=== PATIENT | male | born 1945 | race Caucasian/White ===

== ENCOUNTER → 2017-09-17 | Outpatient (CLI) | payer MEDICARE, OTHER | END | disposition home or self-care (01) | LOC: KCIC MRI 13:38 | DX: M50.322 Other cervical disc degeneration at C5-C6 level (principal); M47.892 Other spondylosis, cervical region; M48.02 Spinal stenosis, cervical region; M25.78 Osteophyte, vertebrae; I10 Essential (primary) hypertension; E78.5 Hyperlipidemia, unspecified; E03.9 Hypothyroidism, unspecified | CPT/HCPCS: 72141 ==

== ENCOUNTER → 2017-10-15 | Outpatient (CLI) | payer MEDICARE, OTHER ==
[2013-06-10 09:45] VITALS: BP 109/61
[~2017-10-15] MED LIST: ALEN70TA3 PO; BUPIVACAINE MPF 0.25% 10 ML VIAL. ONE; CELE200C PO; ESOM40CA PO; EZET1TAB35 PO; FLUT16SP2 NS; HYDR1TAB12 PO; IOHEXOL 180 MG/ML 10 ML VIAL. ONE; LEVO112T4 PO; LIDOCAINE 2% PF 2ML VIAL. ONE; LOSA50TA2 PO; OSCAL; SIMV40TA3 PO; TADA20TA PO; TEST1.25 TD; methylPREDNISolone ACETATE 40 MG/ML VIAL. ONE; methylPREDNISolone ACETATE 80 MG/ML VIAL. ONE
--- NOTE | 2017-10-15 21:58 | PAIN ---
DATE OF SERVICE: 10/15/2017 INITIAL CONSULTATION FOR PAIN CLINIC CHIEF COMPLAINT: Neck and bilateral shoulder pain, right greater than left. HISTORY OF PRESENT ILLNESS: This is a 72-year-old male who presents with history of pain for about 4 months without any specific injury or action he is aware of and pain in the base of the neck, upper mid neck into the shoulders radiating to the right greater than left into the hands and the thumb and index finger bilaterally, somewhat worse on the left with some numbness and tingling. The patient reports no loss of motor function with significant pain in the base of the neck, shoulders, again into the hands bilaterally, worse at night. The patient reports it is constant, becoming more radiating, more aching and dull with numbness in the hands is noted. The patient did have an MRI scan of the cervical spine showing mild right lateral recess stenosis at C5-C6 with mild degenerative disk disease and spondylosis at C5-C6 with fairly severe narrowing of the right C5-C6 neural foramen due to facet and uncovertebral degenerative change, mild narrowing on the left at C3-C4 and C4-C5 as well. The patient reports he has had physical therapy, which seemed to help but only by about 20%-30% and only lasts for about 2 days after the procedure. The patient has had dry needling performed in the neck as well, which helps again for about a day or so. He is taking ibuprofen, which is helpful also but only temporarily. The patient reports no other therapies or other treatments at this time. The patient is on disability rate from 0-10, 10 being the worst. The patient rates his disability for family home responsibilities at 9, also recreation at 9, social activity at 5, sexual behavior 5, self-care 6 and life support activities 4. The patient reports no loss of motor function once again but significant fatigability, especially in the right shoulder and arm with repetitive motion such as reaching over his head even getting dressed, putting his arms to shirt can be somewhat difficult but again worse at night, which is disturbing his sleep with some numbness in the hands. The patient reports it does awaken about 3-4 times a night, does not affect his bowel or bladder control but does affect his ability to walk and at times, he feels like he is off balance when his shoulders are hurting at the most. PAST MEDICAL HISTORY: Significant for arthritis; hypertension and cigarette smoking, quit in 1984. PAST SURGICAL HISTORY: Previous surgeries include eye surgery in 2018; tonsillectomy in 1958 and umbilical hernia x 4 in the past, becoming a ventral hernia repair. CURRENT MEDICATIONS: Include testosterone gel, Vicodin, Cozaar, levothyroxine, Flonase, Celebrex, Cialis and simvastatin. ALLERGIES: The patient has no known drug allergies. FAMILY HISTORY: Significant for thyroid disorders. SOCIAL HISTORY: The patient quit smoking many years ago, has one alcoholic drink about every 2 months or so on average. The patient is not using any illegal, illicit or recreational drugs. He is and lives with his spouse and is currently retired and lives locally in [place], [place]. REVIEW OF SYSTEMS: The patient's review of systems is positive for those items mentioned in history of present illness. All systems reviewed and otherwise negative. It is complete, full and well documented on the patient's chart. PHYSICAL EXAMINATION: VITAL SIGNS: Blood pressure 150/77, pulse is 60, respirations 18, temperature 98.2 degrees Fahrenheit, height is 5 feet 10 inches and weight is 218 pounds. GENERAL: The patient is awake, alert, oriented, appropriate and very pleasant demeanor. HEENT: Head shows normocephalic and atraumatic. Extraocular movements are intact and symmetrical. Oral cavity: Mucous membranes moist and pink. Dentition is intact. NECK: Shows anterior throat supple without palpable lymphadenopathy noted. Swallow reflex symmetrical. CHEST: Shows normal on inspection. Breath sounds clear to auscultation bilaterally. HEART: Shows S1 and S2 clear. No murmurs auscultated. ABDOMEN: Soft, nontender and nondistended. No palpable organomegaly is noted. No rebound or guarding demonstrated. BACK: The patient's back shows spine grossly in the midline, normal-appearing cervical lordotic curvature, thoracic kyphotic curvature and lumbar lordotic curvature. Cervical paraspinous muscle shows symmetrical on inspection, on palpation shows some moderate tenderness but only diffusely with palpation in the superior aspect, middle and lower distributions more tender, slightly more on the right than left but symmetrical without evidence of atrophy or hypertrophy, no trigger points, no significant atrophy or hypertrophy in the trapezius musculature as well, which is moderately tender again without radiation bilaterally. The patient has good rotational motion of the cervical spine with some minor pain with extension, not with forward flexion but also good rotational motion past 45 degrees right and left, closer to 90 degrees, good rotation without significant pain reported. EXTREMITIES: Upper extremities show deep tendon reflexes at 2+ in the biceps, triceps tendons. Motor exam is strong with 5/5 pole shaver strength, bicep and tricep flexion and equal bilaterally. Peripheral pulses are 2+ radial distribution. No peripheral edema is noted. Shoulder shrug is strong and intact without loss of strength on resistance without significant pain reported. This is true with abduction of the shoulder to 90 degrees as well. IMPRESSION: 1. This is a 72-year-old male with approximate 4-month history of increasing pain, base of the neck and shoulders, somewhat worse on the right than the left with some numbness in the hands with the radicular pattern. 2. MRI scan of the cervical spine as noted. 3. Hypertension. 4. Arthritis. PLAN: Options were discussed with the patient including conservative medical management, physical therapy, interventional techniques. He would like to pursue interventional techniques. We discussed a cervical epidural steroid injection using description as well as anatomical models to describe the procedure. Risks were then discussed including, but not limited to bleeding, infection, possibility of epidural hematoma and subsequent neurological compromise, dural puncture, headaches, spinal cord and/or nerve damage, side effects of steroid medication and poor results regarding pain control. The patient understands and wished to proceed. The patient will return to clinic in approximately 2 weeks for followup, was counseled as to return appointment, activity level and side effects to be aware of. DIAGNOSIS: Cervical radiculopathy with cervical degenerative disk disease. PROCEDURE: Cervical epidural steroid injection, translaminar approach, C6-C7 level using C-arm fluoroscopic guidance under sterile prep and drape using local anesthetic. MEDICATION INJECTED: A total of 120 mg Depo-Medrol plus 5 mL of preservative-free normal saline and 2 mL of Isovue for contrast. CONDITION AT DISCHARGE: Stable. The patient tolerated the procedure well and had no complications. JUDE WHITLOCK MD DR: LEONIE/keyonna JOB#: [id number] / [id number] SHIVANI Duarte GALEN MD
== END | disposition home or self-care (01) ==
LOC: PNCL 09:50
PROVIDERS: ATTEND Anesthesiology
DX: M50.123 Cervical disc disorder at C6-C7 level with radiculopathy (principal); I10 Essential (primary) hypertension; M19.90 Unspecified osteoarthritis, unspecified site; Z87.891 Personal history of nicotine dependence; Z98.890 Other specified postprocedural states; Z79.899 Other long term (current) drug therapy; Z83.49 Family history of other endocrine, nutritional and metabolic diseases; Z72.89 Other problems related to lifestyle
CPT/HCPCS: 62321; J1030; J1040; J2001; J3490; Q9965

== ENCOUNTER → 2018-01-12 | Outpatient (CLI) | payer MEDICARE, OTHER ==
[2013-06-10 09:45] VITALS: BP 109/61
[~2018-01-12] MED LIST changes: -BUPIVACAINE MPF 0.25% 10 ML VIAL. ONE; +FINA5TAB4 PO; +GLUC100018 PO; -LIDOCAINE 2% PF 2ML VIAL. ONE
--- NOTE | 2018-01-13 00:24 | PAIN ---
DATE OF SERVICE: 01/12/2018 PROGRESS NOTE FOR PAIN CLINIC DIAGNOSIS: Cervical radiculopathy with cervical degenerative disk disease. HISTORY OF PRESENT ILLNESS: The patient is a 73-year-old male who returns for followup status post cervical epidural steroid injection x 2, most recently on 10/27/2017. The patient did very well with this with about a 75% improvement, now down to about a 50% improvement and mostly pain in the base of the neck and left shoulder and left upper extremity. The patient reports it is an 8 on a scale of 10 at its worst, 4 on average, 1 at its least and is a 4 today, becoming more difficult with sleeping, but about the past 6 weeks, it has gradually returned. No specific injury or action he is aware of. He did fall on some ice just about 2 days ago, but this has not exacerbated the pain in his shoulder much. The patient reports he does not sleep well, but not because of the pain. The patient reports the pain is aching and dull, shooting, sharp, sometimes more constant, more severe, worse with activity of the left upper extremity as well. The patient reports no new motor or sensory deficits or other complaints. PHYSICAL EXAMINATION: VITAL SIGNS: The patient's blood pressure is 126/69, pulse 66, respirations are 18, temperature 98.3 degrees Fahrenheit. Height is 5 feet 10 inches, weight is 218 pounds. GENERAL: The patient is awake, alert, oriented, appropriate, very pleasant demeanor. HEENT: Head shows normocephalic, atraumatic. Extraocular movements are intact and symmetrical. Oral cavity, mucous membranes moist and pink. Dentition is intact. NECK: Shows anterior throat supple without palpable lymphadenopathy noted. Swallow reflex symmetrical. CHEST: Shows normal with inspection. Breath sounds clear to auscultation bilaterally. HEART: Shows S1, S2 clear. No murmurs auscultated. ABDOMEN: Obese, soft, nontender, nondistended. No palpable organomegaly is noted. No rebound or guarding demonstrated. BACK: Shows spine grossly in the midline, normal appearing cervical lordotic curvature, thoracic kyphotic curvature and lumbar lordotic curvature. Cervical paraspinous muscle shows symmetrical on inspection, with palpation shows some mild tenderness only diffusely in the inferior aspect of the left greater than right paraspinous musculature and also the superior medial trapezius on the left is moderately tender compared to the right. The patient has full rotational motion of cervical spine both laterally greater than 45 degrees closer to 90 degrees right and left as well as full extension and full forward flexion without significant difficulty. EXTREMITIES: Upper extremities show deep tendon reflexes 2+ in the biceps, triceps tendons. Motor exam is strong with 5/5 hand welt butter strength, bicep and tricep flexion equal. Peripheral pulses are 2+ radial distribution. No peripheral edema is noted bilaterally. Options were discussed with the patient. The patient's old chart was reviewed as his current medication regimen updated. Current review of systems updated today as well. We will proceed with third in the series of cervical epidural steroid injection today with fluoroscopic guidance. Risks were again discussed including, but not limited to, bleeding, infection, possibility of epidural hematoma, subsequent neurological compromise, dural puncture headaches, spinal cord and/or nerve damage, side effects of steroid medication and poor results regarding pain control. The patient understands and wished to proceed. The patient to return to clinic in approximately 2 weeks for followup, was counseled as to his return appointment, activity level and side effects to be aware of. DIAGNOSIS: Cervical radiculopathy with cervical degenerative disk disease. PROCEDURE: Cervical epidural steroid injection, translaminar approach C6-C7 level using C-arm fluoroscopic guidance under sterile prep and drape using local anesthetic. MEDICATION INJECTED: A total of 120 mg of Depo-Medrol plus 5 mL of preservative-free normal saline and 2 mL of Isovue for contrast. CONDITION AT DISCHARGE: Stable. The patient tolerated the procedure well, had no complications. JUDE WHITLOCK MD DR: LEONIE/keyonna JOB#: [id number] / [id number]
== END | disposition home or self-care (01) ==
LOC: PNCL 10:48
PROVIDERS: ATTEND Anesthesiology
DX: M50.123 Cervical disc disorder at C6-C7 level with radiculopathy (principal); E78.00 Pure hypercholesterolemia, unspecified; I10 Essential (primary) hypertension; K21.9 Gastro-esophageal reflux disease without esophagitis; E03.9 Hypothyroidism, unspecified; Z85.828 Personal history of other malignant neoplasm of skin; Z79.899 Other long term (current) drug therapy; Z98.890 Other specified postprocedural states
CPT/HCPCS: 62321; J1030; J1040; Q9965

== ENCOUNTER → 2018-03-18 | Outpatient (CLI) | payer MEDICARE, OTHER ==
[2013-06-10 09:45] VITALS: BP 109/61
[~2018-03-18] MED LIST changes: -IOHEXOL 180 MG/ML 10 ML VIAL. ONE; +LOSA-73 PO; -LOSA50TA2 PO; -methylPREDNISolone ACETATE 40 MG/ML VIAL. ONE; -methylPREDNISolone ACETATE 80 MG/ML VIAL. ONE
--- NOTE | 2018-03-18 09:58 | KCIC ---
EXAMINATION: Magnetic resonance imaging (MRI) of the lumbar spine without contrast 03/18/2018 9:30 AM HISTORY: Lumbar radicular pain, sciatica on the right side TECHNIQUE: Multiplanar multi-weighted MRI of the lumbar spine was performed without intravenous contrast using the standard lumbar spine protocol. Contrast information: None administered. COMPARISON: MRI lumbar spine March 10, 2012 FINDINGS: There is minimal retrolisthesis of L4 on L5, not significantly changed since prior examination. Vertebral body heights are maintained. Marrow signal intensity is normal in all sequences. Is mild disc height loss at L3-L4 and L4-L5 with mild anterior marginal osteophytosis. Disc desiccation is noted at all levels of lumbar spine, sparing L1-L2. Annular fissure is identified at L5-S1. Conus medullaris terminates at L1. Distal spinal cord signal intensity is normal in all sequences. Abdominal aorta is normal in caliber. Simple appearing renal cortical cyst is identified along the inferior pole left kidney. Renal collecting systems are not visualized. Renal cortical cyst measures 9 mm. Versus portions of the sacrum appear intact. L1-L2: There is mild disc bulge. There is mild facet arthropathy. No neuroforaminal or spinal canal stenosis. L2-L3: There is a mild disc bulge with right foraminal disc protrusion. There is no significant facet arthropathy. Right foraminal disc protrusion appears progressed since the prior examination. No significant neuroforaminal or spinal canal stenosis. L3-L4: There is a moderate circumferential disc bulge with right far lateral annular fissure. There is mild facet arthropathy. Mild left neuroforaminal stenosis. No spinal canal stenosis. Findings are not significantly changed since prior examination. L4-L5: There is a mild disc bulge with right central disc protrusion extending into the right foraminal zone. There is moderate facet arthropathy with ligamentum flavum infolding. There is mild to moderate right and mild left neuroforaminal stenosis. Mild spinal canal stenosis. There is narrowing of the right lateral recess. Findings are stable from prior examination. L5-S1: There is a moderate disc bulge with central disc protrusion. Disc bulges asymmetric to the right. There is moderate facet arthropathy. There is mild bilateral neuroforaminal stenosis, right greater than left. No significant spinal canal stenosis. IMPRESSION: 1. Mild degenerative changes of the lumbar spine with progression of right foraminal disc protrusion at L2-L3 without significant neuroforaminal or spinal canal stenosis. Electronically signed by: Kelin Ruiz MD (03/18/2018 9:54 AM) [facility]
== END | disposition home or self-care (01) ==
LOC: KCIC MRI 09:07
PROVIDERS: ATTEND Physician Assistant Medical
DX: M51.16 Intervertebral disc disorders with radiculopathy, lumbar region (principal); M51.27 Other intervertebral disc displacement, lumbosacral region; M48.061 Spinal stenosis, lumbar region without neurogenic claudication
CPT/HCPCS: 72148

== ENCOUNTER → 2018-04-01 | Outpatient (CLI) | payer MEDICARE, OTHER ==
[2013-06-10 09:45] VITALS: BP 109/61
[~2018-04-01] MED LIST changes: -HYDR1TAB12 PO; +HYDR1TAB13 PO; +IOHEXOL 180 MG/ML 10 ML VIAL. ONE; +TADA5TAB PO; +methylPREDNISolone ACETATE 40 MG/ML VIAL. ONE; +methylPREDNISolone ACETATE 80 MG/ML VIAL. ONE
--- NOTE | 2018-04-01 14:53 | PAIN ---
DATE OF SERVICE: 04/01/2018 PROGRESS NOTE FOR PAIN CLINIC DIAGNOSES: 1. Cervical radiculopathy with cervical degenerative disk disease. 2. Lumbar radiculopathy with lumbar degenerative disk disease and lumbar spinal stenosis. HISTORY OF PRESENT ILLNESS: The patient is a 73-year-old male who returns for followup status post cervical epidural steroid injection x 3, last seen on 01/12. The patient did very well with about 60% improvement overall. The patient reports his main complaint now is his back and the right lower extremity though. The patient has had a new MRI scan of the lumbar spine showing L4-L5 and L5-S1 areas of significant degenerative changes with moderate disk bulge and central disk protrusion at L4-L5 and L5-S1 with asymmetric bulge to the right at L5-S1 and [id number] right and mild left foraminal stenosis at L4-L5. The patient reports it is worse with walking, standing and changing positions, better with sitting or lying down. Generally, it does not awaken him from sleep at night. The patient reports it is aching and tight, shooting into the right posterior gluteus, posterior thigh, posterior calf and lateral calf. The patient reports it is a 6 on a scale of 10 at its worst, 6 on average, 4 at its least and is a 6 today. The patient reports no loss of motor function, no new bowel or bladder incontinence or other complaints. PHYSICAL EXAMINATION: VITAL SIGNS: The patient's blood pressure is 112/66, pulse 64, respirations 18, temperature 97.7 degrees Fahrenheit, weight is 216 pounds. GENERAL: The patient is awake, alert, oriented, appropriate, very pleasant demeanor. HEENT: Head shows normocephalic, atraumatic. Extraocular movements are intact and symmetrical. Oral cavity: Mucous membranes are moist and pink. Dentition is intact. NECK: Shows anterior throat supple without palpable lymphadenopathy noted. Swallow reflex is symmetrical. CHEST: Shows normal on inspection. Breath sounds are clear to auscultation bilaterally. HEART: Shows S1 and S2 clear. No murmurs auscultated. ABDOMEN: Soft, nontender, nondistended. No palpable organomegaly is noted. No rebound or guarding demonstrated. BACK: Shows spine grossly in the midline. Cervical lordotic curvature is intact as is thoracic kyphotic curvature and lumbar lordotic curvature. Lumbar paraspinous muscle shows symmetrical on inspection, on palpation shows some moderate tenderness diffusely bilaterally, but only in the low lumbar distribution, more on the right than the left. The patient has good rotational motion of lumbar spine, both laterally greater than 10 degrees right and left as well as extension greater than 10 degrees, forward flexion 45 degrees without difficulty. EXTREMITIES: Lower extremities show deep tendon reflexes at 1+ in the patellar and tendo calcaneus tendons are equal. Motor exam is strong with 5/5 dorsiflexion, extension, quadriceps and hamstring flexion and symmetrical. Peripheral pulses are 1+ posterior tibia. No peripheral edema is noted bilaterally. Options were discussed with the patient. The patient's old chart was reviewed as his current medication regimen updated, current review of systems updated today as well. We will proceed with a lumbar epidural steroid injection today with fluoroscopic guidance. Risks were discussed including but not limited to bleeding, infection, possibility of epidural hematoma, subsequent neurological compromise, dural puncture, headaches, spinal cord and/or nerve damage, side effects of steroid medication and poor results regarding pain control. The patient understands and wished to proceed. The patient will return to the clinic in approximately 2 weeks for followup, was counseled on return appointment, activity level and side effects to be aware of. DIAGNOSIS: Lumbar radiculopathy with lumbar degenerative disk disease and lumbar spinal stenosis. PROCEDURE: Lumbar epidural steroid injection, translaminar approach at L5-S1 level using C-arm fluoroscopic guidance under sterile prep and drape using local anesthetic. MEDICATION INJECTED: A total of 120 mg Depo-Medrol plus 10 mL of preservative-free normal saline and 2 mL of Isovue for contrast. CONDITION AT DISCHARGE: Stable. The patient tolerated the procedure well, had no complications. JUDE WHITLOCK MD DR: LEONIE/keyonna JOB#: [id number] / [id number]
== END | disposition home or self-care (01) ==
LOC: PNCL 08:55
PROVIDERS: ATTEND Anesthesiology
DX: M51.16 Intervertebral disc disorders with radiculopathy, lumbar region (principal); M48.061 Spinal stenosis, lumbar region without neurogenic claudication; M50.10 Cervical disc disorder with radiculopathy, unspecified cervical region
CPT/HCPCS: 62323; J1030; J1040; Q9965

== ENCOUNTER → 2018-04-15 | Outpatient (CLI) | payer MEDICARE, OTHER ==
[2013-06-10 09:45] VITALS: BP 109/61
--- NOTE | 2018-04-15 23:01 | PAIN ---
DATE OF SERVICE: 04/15/2018 DIAGNOSES: 1. Cervical radiculopathy with cervical degenerative disk disease. 2. Lumbar radiculopathy with lumbar degenerative disk disease, lumbar spinal stenosis. HISTORY OF PRESENT ILLNESS: The patient is a 73-year-old male who returns for followup status post lumbar epidural steroid injection x 1. The patient reports nearly 90% improvement after the first injection, is currently still helping. The pain is almost completely gone in his right low back and right leg. The patient reports the leg is doing much better. He has increased his distance walking. He reports that one day after the injection he stopped using his cane, that he did not need it anymore, still is not using it. He increased his activity at home as well as work, sleeping better, traveling with much greater ease and comfort. The patient is very pleased with his progress thus far, reports no new motor or sensory deficits. He reports his pain is 3 on a scale of 10 at its worst, 3 on average and 0 at its least and 3 today. The patient reports it is dull and aching, but somewhat constant in the low back, also in his neck and left shoulder and upper extremity slightly more noticeable, but still doing much better overall. The patient reports no new motor or sensory deficits, no new bowel or bladder incontinence or other complaints. PHYSICAL EXAMINATION: VITAL SIGNS: The patient's blood pressure 113/65, pulse 58, respirations 16, temperature is 97.9 degrees Fahrenheit, weight is 211 pounds. GENERAL: The patient is awake, alert, oriented, appropriate, very pleasant demeanor. HEENT: Normocephalic, atraumatic. Extraocular movements are intact and symmetrical. Oral cavity: Mucous membranes moist and pink. Dentition is intact. NECK: Shows anterior throat supple without palpable lymphadenopathy noted. Swallow reflex symmetrical. CHEST: Shows normal with inspection. Breath sounds clear to auscultation bilaterally. HEART: Shows S1, S2 clear. No murmurs auscultated. ABDOMEN: Soft, nontender, nondistended. No palpable organomegaly is noted. No rebound or guarding demonstrated. BACK: Shows spine grossly in the midline. Normal-appearing thoracic kyphosis, cervical lordotic curvature and lumbar lordotic curvatures. Lumbar paraspinous muscle shows symmetrical on inspection; with palpation shows some mild tenderness, more on the right than the left in the inferior aspect of the lumbar paraspinous muscles, but without radiation, without trigger points. The patient has good rotational motion of lumbar spine, both laterally as well as extension and flexion without difficulty. EXTREMITIES: Lower extremities show deep tendon reflexes 1+ in the patellar and tendo-calcaneus tendons. Motor exam is strong with 5/5 dorsiflexion, extension, quadriceps and hamstring flexion. Peripheral pulses are 1+ posterior tibia. No peripheral edema is noted bilaterally. ASSESSMENT AND PLAN: Options were discussed with the patient. The patient's old chart was reviewed as was his current medication regimen updated. Current review of systems updated today as well. We will proceed with a second in the series of lumbar epidural steroid injection today with fluoroscopic guidance. Risks were again discussed including, but not limited to bleeding, infection, possibility of epidural hematoma, subsequent neurological compromise, dural puncture, headaches, spinal cord and/or nerve damage, side effects of steroid medication and poor results regarding pain control. The patient understands and wished to proceed. The patient to return to clinic in approximately 2 weeks for followup. Was counseled on return appointment, activity level and side effects to be aware of. DIAGNOSIS: Lumbar radiculopathy with lumbar degenerative disk disease, lumbar spinal stenosis. PROCEDURE: Lumbar epidural steroid injection, translaminar approach at the L5-S1 level using C-arm fluoroscopic guidance under sterile prep and drape using local anesthetic. MEDICATION INJECTED: A total of 120 mg Depo-Medrol plus 10 mL of preservative-free normal saline with 2 mL of Isovue for contrast. He was discharged in stable condition. The patient tolerated the procedure well, had no complications. JUDE WHITLOCK MD DR: LEONIE/keyonna JOB#: [id number] / [id number]
== END | disposition home or self-care (01) ==
LOC: PNCL 08:53
PROVIDERS: ATTEND Anesthesiology
DX: M51.16 Intervertebral disc disorders with radiculopathy, lumbar region (principal); M48.061 Spinal stenosis, lumbar region without neurogenic claudication; M50.10 Cervical disc disorder with radiculopathy, unspecified cervical region
CPT/HCPCS: 62323; J1030; J1040; Q9965

== ENCOUNTER → 2018-04-20 | Day surgery (SDC) | payer MEDICARE, OTHER ==
[~2018-04-20] MED LIST changes: +BACITRACIN 50,000 UNIT in IV NORMAL SALINE 1000ML BAG 1,000 ML IRR ONE; +HYDROmorphone 2 MG/ML VIAL IV PRN; -IOHEXOL 180 MG/ML 10 ML VIAL. ONE; +IV RINGERS,LACTATED 1000ML 1,000 ML IV SCH; +LIDOCAINE 1% PF 2 ML VIAL. ID PRN; +LIDOCAINE 1% PF 2 ML VIAL. ONE; +MORPHINE SULFATE 2 MG/ML VIAL. IV PRN; +ONDANSETRON PF 4 MG/2 ML VIAL. IV PRN; +PROCHLORPERAZINE 10 MG/2 ML VIAL. IV PRN; +PROPOFOL 60 ML IV ONE; +fentaNYL PF VIAL 100 MCG/2 ML VIAL IV PRN; -methylPREDNISolone ACETATE 40 MG/ML VIAL. ONE; -methylPREDNISolone ACETATE 80 MG/ML VIAL. ONE
[2018-04-20 16:47] VITALS: BP 166/74
== END | disposition home or self-care (01) ==
LOC: ENDOS 14:54
PROVIDERS: ATTEND Internal Medicine Gastroenterology
DX: K57.30 Diverticulosis of large intestine without perforation or abscess without bleeding (principal); K64.0 First degree hemorrhoids; K29.50 Unspecified chronic gastritis without bleeding; D50.0 Iron deficiency anemia secondary to blood loss (chronic); E03.9 Hypothyroidism, unspecified; E78.00 Pure hypercholesterolemia, unspecified; G47.30 Sleep apnea, unspecified; M19.90 Unspecified osteoarthritis, unspecified site; I10 Essential (primary) hypertension; K21.9 Gastro-esophageal reflux disease without esophagitis; Z85.828 Personal history of other malignant neoplasm of skin; Z83.71 Family history of colonic polyps; Z83.3 Family history of diabetes mellitus; Z82.49 Family history of ischemic heart disease and other diseases of the circulatory system; Z72.89 Other problems related to lifestyle; Z87.891 Personal history of nicotine dependence; Z79.899 Other long term (current) drug therapy; Z98.52 Vasectomy status; Z98.890 Other specified postprocedural states
CPT/HCPCS: 43235; 45378; J2704; J3490; J7030

== ENCOUNTER → 2018-04-29 | Outpatient (CLI) | payer MEDICARE, OTHER ==
[2018-04-20 16:47] VITALS: BP 166/74
[~2018-04-29] MED LIST changes: -BACITRACIN 50,000 UNIT in IV NORMAL SALINE 1000ML BAG 1,000 ML IRR ONE; -HYDROmorphone 2 MG/ML VIAL IV PRN; -IV RINGERS,LACTATED 1000ML 1,000 ML IV SCH; -LIDOCAINE 1% PF 2 ML VIAL. ID PRN; -LIDOCAINE 1% PF 2 ML VIAL. ONE; -MORPHINE SULFATE 2 MG/ML VIAL. IV PRN; -ONDANSETRON PF 4 MG/2 ML VIAL. IV PRN; -PROCHLORPERAZINE 10 MG/2 ML VIAL. IV PRN; -PROPOFOL 60 ML IV ONE; -fentaNYL PF VIAL 100 MCG/2 ML VIAL IV PRN
--- NOTE | 2018-04-29 20:03 | PAIN ---
DATE OF SERVICE: 04/29/2018 PROGRESS NOTE FOR PAIN CLINIC DIAGNOSES: 1. Cervical radiculopathy with cervical degenerative disk disease. 2. Lumbar radiculopathy with lumbar degenerative disk disease and lumbar spinal stenosis. HISTORY OF PRESENT ILLNESS: The patient is a 73-year-old male who returns for followup status post lumbar epidural steroid injections x 2. He is doing very well with 90% improvement overall with his low back and right lower extremity pain. The patient reports he has had some minor pain in the base of the neck and his left shoulder and arm, but it is only very minor, but he is doing very well. The patient has been increasing his activity with greater distance walking, doing household activities, recreational activities, traveling with greater ease and comfort, sleeping well at night, does not awaken him from sleep at this time. The patient reports his neck is starting to give him some trouble. He had had a cervical epidural steroid injection last fall. He did very well with that also, but still in the left shoulder and arm radiating to the posterior arm and forearm with some tingling and numbness in the thumb on the left side. The patient reports he has a dull ache in the neck and his low back is doing much better. He is very pleased with this. Some tingling and shooting pain in the left arm is noted, otherwise doing quite well. PHYSICAL EXAMINATION: VITAL SIGNS: The patient's blood pressure is 129/73, pulse 66, respirations are 16, temperature is 98.1 degrees Fahrenheit, weight is 211 pounds. GENERAL: The patient is awake, alert, oriented, appropriate, very pleasant demeanor. HEENT: Head shows normocephalic, atraumatic. Extraocular movements are intact and symmetrical. Oral cavity: Mucous membranes are moist and pink. Dentition is intact. NECK: Shows anterior throat supple without palpable lymphadenopathy noted. Swallow reflex is symmetrical. CHEST: Shows normal on inspection. Breath sounds are clear to auscultation bilaterally. HEART: Shows S1, S2 clear. No murmurs auscultated. ABDOMEN: Soft, nontender, nondistended. No palpable organomegaly is noted. No rebound or guarding demonstrated. BACK: Shows spine grossly in the midline. Normal appearing cervical lordotic curvature, thoracic kyphotic curvature and lumbar lordotic curvature. Cervical paraspinous muscle shows symmetrical on inspection, on palpation has some mild tenderness diffusely in the cervical paraspinous musculature, but only diffusely. Full rotational motion, both laterally as well as extension and flexion. Cervical spine without difficulty. Lumbar spine shows full rotation as well. Paraspinous musculature shows only very minimal tenderness in the low lumbar distribution and is symmetrical. Good rotational motion as well without pain reported. EXTREMITIES: Show upper extremity deep tendon reflexes at 2+ in the biceps and triceps tendons. Lower extremities are 1+ in the tendo calcaneus and patellar tendons. Motor exam is strong with 5/5 dorsiflexion, extension, quadriceps and hamstring flexion as well as tax clerk strength, bicep and tricep flexion. Options were discussed with the patient. The patient's old chart was reviewed as his current medication regimen updated. Current review of systems updated today as well. We will proceed with holding any further injections at this time. We will try Medrol Dosepak to see if it may decrease the pain in the neck and left upper extremity. As the patient has had 2 injections thus far this year, I would like to wait on any further, in case he gets more active with warmer weather and needs then, we will have him take Medrol Dosepak. He was given instructions as well as side effects to be aware of with the medication and will follow up on an as needed basis at this time. JUDE WHITLOCK MD DR: LEONIE/keyonna JOB#: [id number] / [id number]
== END | disposition home or self-care (01) ==
LOC: PNCL 08:57
PROVIDERS: ATTEND Anesthesiology
DX: M51.16 Intervertebral disc disorders with radiculopathy, lumbar region (principal); M50.10 Cervical disc disorder with radiculopathy, unspecified cervical region; M48.061 Spinal stenosis, lumbar region without neurogenic claudication
CPT/HCPCS: G0463

== ENCOUNTER → 2018-07-23 | Outpatient (CLI) | payer MEDICARE, OTHER ==
[2018-04-20 16:47] VITALS: BP 166/74
--- NOTE | 2018-07-23 16:27 | KCIC ---
MRI of the lumbar spine without contrast 07/23/2018 CLINICAL HISTORY: Low back pain which radiates down the right leg. TECHNIQUE: Unenhanced T1-weighted and T2-weighted sagittal and axial and inversion recovery sagittal images of the lumbar spine were obtained. FINDINGS: Comparison study is dated 03/18/2018. Mild S-shaped curvature of the thoracolumbar spine is seen. Degenerative signal changes are seen involving the L2-3, L3-4, L4-5 and L5-S1 discs. Degenerative signal changes are seen within the marrow surrounding these discs. A 6 mm hemangioma is seen involving the T12 vertebral body. The conus medullaris is normal morphology, position, and signal characteristics. What appear to be multiple parapelvic cysts are seen involving both kidneys. These measure 1 to 4.3 cm in size. The changes of degenerative disc disease are seen throughout the lumbar disc spaces. These consist of mild to moderate generalized disc bulges. Degenerative changes involving the facet joints and mild ligamentum flavum hypertrophy. These findings do not result in definite areas of significant central spinal canal or neural foraminal stenosis at any level. Since the previous examination there has been no significant interval change. IMPRESSION: The changes of degenerative disc disease are seen involving the lumbar spine. These findings do not result in significant central spinal canal or neural foraminal stenosis at any level. Electronically signed by: Stanford Hall MD (07/23/2018 4:24 PM) [id number]
--- NOTE | 2018-07-23 16:37 | KCIC ---
MRI of the cervical spine without contrast 07/23/2018 CLINICAL HISTORY: Chronic neck pain which radiates down both shoulders. Technique: Unenhanced T1-weighted, T2-weighted and inversion recovery sagittal and T2 weighted and gradient echo sagittal images of the cervical spine were obtained. FINDINGS: Comparison study is dated 09/17/2017. Minimal lateral curvature of the cervical spine is seen convex to the right. There is straightening of the normal cervical lordosis. Degenerative signal changes are seen involving all of the disks of the cervical spine. Degenerative signal changes are seen within the marrow surrounding these discs. No area of abnormal signal intensity is seen involving the cervical spinal cord. At the C2-3 disc space there is a minimal generalized disc bulge. Degenerative changes are seen involving the uncovertebral and facet joints bilaterally. These findings do not result in significant central spinal canal or neural foraminal stenosis. At the C3-4 disc space there is a mild generalized disc bulge. Degenerative changes are seen involving the uncovertebral and facet joints, left greater than right. These findings when combined do not result in significant central spinal canal stenosis. Mild left neural foraminal stenosis is seen. The right neural foramen is patent. At the C4-5 disc space there is a minimal generalized disc bulge. Degenerative changes are seen involving the uncovertebral and facet joints, right greater than left. These findings do not result in significant central spinal canal stenosis. Mild right greater than left neural foraminal stenosis is seen. At the C5-6 disc space there is a mild generalized disc bulge. Degenerative changes are seen involving the uncovertebral and facet joints bilaterally. These findings do not result in significant central spinal canal stenosis. Mild to moderate bilateral neural foraminal stenosis is seen. At the C6-7 disc space there is a mild generalized disc bulge. Degenerative changes are seen involving the uncovertebral and facet joints bilaterally. These findings when combined do not result in significant central spinal canal stenosis. No neural foraminal stenosis is seen. At the C7-T1 disc space there is a minimal generalized disc bulge. Degenerative changes are seen involving the facet joints bilaterally. These findings do not result in significant central spinal canal or neural foraminal stenosis. Since the previous examination there has been no significant interval change. IMPRESSION: Degenerative changes are seen throughout the cervical spine. These findings do not result in significant central spinal canal stenosis at any level. Mild left neural foraminal stenosis is seen at C3-4. Mild right greater than left neural foraminal stenosis is seen at C4-5. Mild to moderate bilateral neural foraminal stenosis is seen at C5-6. Electronically signed by: Stanford Hall MD (07/23/2018 4:34 PM) [email or web address]
== END | disposition home or self-care (01) ==
LOC: KCIC MRI 14:54
PROVIDERS: ATTEND Nurse Practitioner Family
DX: M47.812 Spondylosis without myelopathy or radiculopathy, cervical region (principal); M51.36 Other intervertebral disc degeneration, lumbar region; M48.02 Spinal stenosis, cervical region; N28.1 Cyst of kidney, acquired
CPT/HCPCS: 72141; 72148

== ENCOUNTER → 2018-10-11 | Outpatient (CLI) | payer MEDICARE, OTHER ==
[2018-04-20 16:47] VITALS: BP 166/74
[~2018-10-11] MED LIST changes: +CYAN-25 PO; +FERR325T14 PO; +IOHEXOL 180 MG/ML 10 ML VIAL. ONE; +LOSA25TA PO; +MELO15TA23 PO; +methylPREDNISolone ACETATE 40 MG/ML VIAL. ONE; +methylPREDNISolone ACETATE 80 MG/ML VIAL. ONE
--- NOTE | 2018-10-11 08:50 | PAIN ---
DATE OF SERVICE: 10/11/2018 DIAGNOSIS: Cervical radiculopathy with cervical degenerative disk disease. HISTORY OF PRESENT ILLNESS: The patient is a 73-year-old male who returns for followup status post cervical epidural steroid injections as well as lumbar epidural steroid injections, most recently seen on 05/18/2018. The patient had lumbar epidural steroid injection and did very well. Cervical epidural was not done since 01/12/2018. The patient did very well with this and had about 90% improvement overall. The patient reports still significant pain now returning to the base of the neck and right upper extremity in a radicular fashion. The patient has seen his neurosurgeon recently, had a new MRI scan showing some degenerative changes, mild to moderate throughout the C3-C4, C4-C5 and C5-C6 levels with bilateral neural foraminal stenosis, but neurosurgeon now recommending only conservative measures. The patient is undergoing cervical traction and physical therapy and still significant pain in the base of neck and shoulders, rated as a cramping type pain in the right deltoid as well, can be severe with activity, lifting or repetitive motion of the right arm. The patient reports the pain is a 9 on a scale of 10 at its worst over the past week, 4 on average, a 2 at its least and is a 3 today. The patient reports no new motor or sensory deficits, no new bowel or bladder incontinence or other complaints. PHYSICAL EXAMINATION: VITAL SIGNS: The patient's blood pressure is 129/64, pulse 74, respirations 16, temperature is 98.0 degrees Fahrenheit, weight is 210 pounds. GENERAL: The patient is awake, alert, oriented, appropriate, very pleasant demeanor. HEENT: Shows normocephalic, atraumatic. Extraocular movements are intact and symmetrical. Oral cavity: Mucous membranes moist and pink. Dentition is intact. NECK: Shows anterior throat supple without palpable lymphadenopathy noted. Swallow reflex symmetrical. CHEST: Shows normal on inspection. Breath sounds clear to auscultation bilaterally. HEART: Shows S1, S2 clear. No murmurs auscultated. ABDOMEN: Soft, nontender, nondistended. No palpable organomegaly is noted. No rebound or guarding demonstrated. BACK: The patient's neck shows good range rotational motion both laterally greater than 45 degrees right and left, closer to 90 degrees as well as full extension, full forward flexion with only very minimal pain with extension, but not with forward flexion. The patient shows good rotational motion of the shoulders, both actively and passively. EXTREMITIES: Upper extremities show deep tendon reflexes 2+ in the biceps and triceps tendons. 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 Peripheral pulses are 2+ radial distribution. No peripheral edema is noted bilaterally as well. Options were discussed with the patient. The patient's old chart was reviewed as is current medication regimen updated. Current review of systems updated today as well. We will proceed with a cervical epidural steroid injection today with fluoroscopic guidance. Risks were again discussed including, but not limited to bleeding, infection, possibility of epidural hematoma, subsequent neurological compromise, dural puncture, headaches, spinal cord and/or nerve damage, side effects of steroid medication and poor results regarding pain control. The patient understands and wished to proceed. The patient will return to clinic in approximately 2 weeks for followup. He was counseled on return appointment, activity level and side effects to be aware of. DIAGNOSIS: Cervical radiculopathy with cervical degenerative disk disease. PROCEDURE: Cervical epidural steroid injection, translaminar approach at the C6-C7 level using C-arm fluoroscopic guidance under sterile prep and drape using local anesthetic. MEDICATION INJECTED: The patient received a total of 120 mg Depo-Medrol plus 5 mL of preservative-free normal saline and 2 mL of contrast. CONDITION AT DISCHARGE: Stable. The patient tolerated procedure well, had no complications. JUDE WHITLOCK MD DR: LEONIE/keyonna JOB#: [id number] / [id number]
== END ==
LOC: PNCL 07:40
PROVIDERS: ATTEND Anesthesiology
DX: M50.123 Cervical disc disorder at C6-C7 level with radiculopathy (principal)
CPT/HCPCS: 62321; J1030; J1040; Q9965

== ENCOUNTER → 2018-10-27 | Outpatient (CLI) | payer MEDICARE, OTHER ==
[2018-04-20 16:47] VITALS: BP 166/74
--- NOTE | 2018-10-28 00:16 | PAIN ---
DATE OF SERVICE: 10/27/2018 PROGRESS NOTE FOR PAIN CLINIC DIAGNOSES: Cervical radiculopathy with cervical degenerative disk disease. HISTORY OF PRESENT ILLNESS: The patient is a 73-year-old male who returns for followup status post cervical epidural steroid injection x 1. The patient reports about 90% improvement in the base of neck and shoulders, doing much better, increased his activity with greater ease and comfort, doing walking distances, household and work activities with much greater ease, sleeping well at night, does not awaken from sleep from the pain. The patient reports the pain is basically a 5 on a scale of 10 at its worst in the past week, 3 on average, 0 at its least and is a 3 today. The patient reports it is in the base of the neck and bilateral upper extremities and shoulders, more in the base of the neck and shoulders and the arms. The patient reports it is sharp and cramping at times, significantly left since his last injection. The patient reports it is on and off in intensity. No new motor or sensory deficits or other complaints. PHYSICAL EXAMINATION: VITAL SIGNS: The patient's blood pressure 124/65, pulse 77, respirations 18, temperature is 98.2 degrees Fahrenheit, height is 5 feet 10 inches, weighs 202 pounds. GENERAL: The patient is awake, alert, oriented, appropriate, very pleasant demeanor. HEENT: Shows normocephalic, atraumatic. Extraocular movements are intact and symmetrical. Oral cavity: Mucous membranes moist and pink. Dentition is intact. NECK: Shows anterior throat supple without palpable lymphadenopathy noted. Swallow reflex symmetrical. CHEST: Shows normal on inspection. Breath sounds clear to auscultation bilaterally. HEART: Shows S1, S2 clear. No murmurs auscultated. ABDOMEN: Soft, nontender, nondistended. No palpable organomegaly is noted. No rebound or guarding demonstrated. BACK: Shows spine grossly in the midline. Cervical paraspinous muscle shows symmetrical on inspection with normal cervical lordotic curvature. The palpation shows some moderate tenderness only diffusely in the inferior aspect of the cervical paraspinous muscles bilaterally and into the superior medial trapezius bilaterally as well. The patient shows full rotational motion of cervical spine both laterally as well as extension and flexion without significant difficulty. EXTREMITIES: Upper extremities show deep tendon reflexes 2+ in the biceps and triceps tendons. 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 Peripheral pulses are 2+ radial. No peripheral edema is noted. Options were discussed with the patient. The patient's old chart was reviewed as his current medication regimen updated. Current review of systems updated today as well. We will proceed with a second in this series of cervical epidural steroid injection today with fluoroscopic guidance. Risks were again discussed including, but not limited to bleeding, infection, possibility of epidural hematoma, subsequent neurological compromise, dural puncture, headaches, spinal cord and/or nerve damage, side effects of steroid medication and poor results regarding pain control. The patient understands and wished to proceed. The patient will return to clinic in approximately 2 weeks for followup. He was counseled on return appointment, activity level and side effects to be aware of. DIAGNOSES: Cervical radiculopathy with cervical degenerative disk disease. PROCEDURE: Cervical steroid injection, translaminar approach C6-C7 level using C-arm fluoroscopic guidance under sterile prep and drape using local anesthetic. MEDICATION INJECTED: Total of 120 mg Depo-Medrol plus 5 mL of preservative-free normal saline and 2 mL of contrast. CONDITION AT DISCHARGE: Stable. The patient tolerated the procedure well, had no complications. JUDE WHITLOCK MD DR: LEONIE/keyonna JOB#: [id number] / [id number]
== END ==
LOC: PNCL 08:47
PROVIDERS: ATTEND Anesthesiology
DX: M50.123 Cervical disc disorder at C6-C7 level with radiculopathy (principal)
CPT/HCPCS: 62321; J1030; J1040; Q9965